=== PATIENT | female | born 1990 | race Two or more races ===

== ENCOUNTER 2018-11-28 19:52 | Emergency (ER) | payer SELFPAY ==
[2018-11-28] MEDS ORDERED: Sodium Chloride 0.9% 1,000 ML IV ONE (20:25)
[2018-11-28] MEDS ORDERED: Sodium Chloride 0.9% 2.5 ML Syringe FLUSH PRN (20:25)
[2018-11-28] MEDS ORDERED: Sodium Chloride 0.9% 10 ML Syringe FLUSH PRN (20:25)
--- NOTE | 2018-11-28 20:30 | EDM.PDOC ---
ED HPI GENERAL MEDICAL PROBLEM - General Chief Complaint: CONTRACT ASSOCIATE Problem Stated Complaint: POSS INFECTION POST PROCEDURE Time Seen by Provider: 11/28/18 19:58 - History of Present Illness INITIAL COMMENTS - FREE TEXT/NARRATIVE: HISTORY AND PHYSICAL: History of present illness: The patient is a healthy 28-year-old female who is a 2 para 0 with one prior voluntary interruption of and one recent one, which is why she is here in the ED, who presents after having an done voluntarily at about 7 weeks at [facility] in 4 ago. The procedure was performed last , November 23 and the patient tells me that about a week before the procedure she did have some brownish discharge which was small volume but not bleeding. She told the provider this on the procedure and she was given Zithromax 500 mg 1 tablet to take after the procedure. The patient had the procedure last and it was uneventful and according to her discharge paperwork she was also given Misoprostol 200 g 4 tablets that she took in a medication regimen later that evening with nausea medications and pain medications. The discharge paperwork to tell her that she was going to have some cramping and bleeding and she did pass some clots later night as well as Tuesday and then her bleeding slowed down to more like a period and it was only 2 pads a day with some lower pelvic cramping. She said that yesterday afternoon and today she is still only having a small amount of bleeding and is not increased but there is a smell to the discharge that is very malodorous and she contact the clinic and they recommend that she came in to be evaluated for possible infection. Patient said that she has had intermittent nausea and cramping since the procedure it is not worsened today and she has not had heavier bleeding today. The patient has no other gynecologic surgery or history and she has no discomfort with urination flank pain or upper abdominal pain. She has not had vomiting or diarrhea and the says that she was complaining that she was very cold when she was outside today although it was warm but they did not take her temperature and she has no documented fever. She has no cough chest pains or shortness of breath. Review of systems: As per history of present illness and below otherwise all systems reviewed and negative. Past medical history: As per history of present illness and as reviewed below otherwise noncontributory. Surgical history: As per history of present illness and as reviewed below otherwise noncontributory. Social history: No reported history of drug or alcohol abuse. Family history: As per history of present illness and as reviewed below otherwise noncontributory. Physical exam: General: Well-developed well-nourished female who is nontoxic and vital signs were noted by me. She moves easily in the ED and ambulated in without assistance and is in no distress. HEENT: Atraumatic, normocephalic, negative for conjunctival pallor or scleral icterus, mucous membranes moist, throat clear, neck supple, nontender, trachea midline. Lungs: Clear to auscultation, breath sounds equal bilaterally, chest nontender. Heart: S1S2, regular rate and rhythm no overt murmurs Abdomen: Soft, nondistended, nontender. Negative for masses or hepatosplenomegaly. Negative for costovertebral tenderness. More specifically when I palpate in the suprapubic area and the lower abdomen there is no rebound guarding or [place] tenderness Pelvis: Stable nontender. Genitourinary: External genitalia are within normal limits and there is no virgen blood or discharge seen. There is a scant amount of dark red blood in the vault without clots or tissue and there is a teeny trickle per os of red blood which is tacky and mucous-like with some yellowish characteristics. There is no odor appreciated on exam of this discharge. The cervix is nulliparous and there is no friability. There is no cervical motion tenderness or gross uterine tenderness and the uterus is small bulky and non-boggy. Adnexa are without masses or tenderness. Rectal: Deferred. Extremities: Atraumatic, full range of motion without defects or deficits and no pedal edema Neurovascular unremarkable. Neuro: Awake, alert, oriented. Cranial nerves II through XII unremarkable. Cerebellum unremarkable. Motor and sensory unremarkable throughout. Exam nonfocal. Diagnostics: CBC CMP lactic acid ABO Rh UA with reflex serum quantitative hCG pelvic ultrasound, genital swabs for trichomonas and gonorrhea and chlamydia, cervical culture Therapeutics: IV, IV fluids 2149: Case was discussed with Dr. Khan who was on-call and she agrees that this smell and discharge the patient is having is likely just the old blood and having bleeding at this point is still very common. She agrees with doing a course of doxycycline just to cover all bases and the patient is aware of this. I have informed Dr. Khan that the patient would like contraception and follow -up well woman care and I will give the patient her information. Impression: Postoperative bleeding and pain stable Definitive disposition and diagnosis as appropriate pending reevaluation and review of above. lower abd Pain Score (Numeric/FACES): 5 - Related Data Allergies Allergy/AdvReac Type Severity Reaction Status Date / Time No Known Allergies Allergy Verified 04/25/17 14:38 MST Home Meds: Home Meds . [No Known Home Meds] 04/25/17 [History] Past Medical History - Past Health History Medical/Surgical History: Denies Medical/Surgical History Social & Family History - Family History Family Medical History: Noncontributory ED ROS GENERAL - Review of Systems Review Of Systems: ROS reveals no pertinent complaints other than HPI. ED EXAM, GENERAL - Physical Exam Exam: See Below (See dictation) Course - Vital Signs Last Recorded V/S: Last Vital Signs Temp 36.4 C 11/28/18 20:05 Pulse 80 11/28/18 20:05 Resp 20 11/28/18 20:05 BP 129/87 11/28/18 20:05 Pulse Ox 99 11/28/18 20:05 - Orders/Labs/Meds Orders: Active Orders 24 hr Category Date Time Status CHLAMYDIA AND GONORRHEA BY TMA Stat Lab 11/28/18 20:45 Received CULTURE GENITAL [RM] Stat Lab 11/28/18 20:45 Received CULTURE URINE [RM] Stat Lab 11/28/18 20:30 Received Sodium Chloride 0.9% [Saline Flush] Med 11/28/18 20:25 Active 10 ml FLUSH ASDIRECTED PRN Sodium Chloride 0.9% [Saline Flush] Med 11/28/18 20:25 Active 2.5 ml FLUSH ASDIRECTED PRN Saline Lock Insert [OM.PC] Stat Oth 11/28/18 20:23 Ordered Medication Orders Sodium Chloride (Saline Flush) 10 ml FLUSH ASDIRECTED PRN PRN Reason: Keep Vein Open Sodium Chloride (Saline Flush) 2.5 ml FLUSH ASDIRECTED PRN PRN Reason: Keep Vein Open Labs: Laboratory Tests 11/28/18 11/28/18 11/28/18 Range/Units 20:32 20:32 20:32 WBC 11.20 H (4.0-11.0) K/uL RBC 4.28 L (4.30-5.90) M/uL Hgb 12.7 (12.0-16.0) g/dL Hct 38.2 (36.0-46.0) % MCV 89.3 (80.0-98.0) fL MCH 29.7 (27.0-32.0) pg MCHC 33.2 (31.0-37.0) g/dL RDW Std Deviation 42.3 (28.0-62.0) fl RDW Coeff of Mukesh 13 (11.0-15.0) % Plt Count 329 (150-400) K/uL MPV 9.60 (7.40-12.00) fL Neut % (Auto) 52.6 (48.0-80.0) % Lymph % (Auto) 36.4 (16.0-40.0) % [place] % (Auto) 8.8 (0.0-15.0) % Eos % (Auto) 1.9 (0.0-7.0) % Baso % (Auto) 0.3 (0.0-1.5) % Neut # (Auto) 5.9 H (1.4-5.7) K/uL Lymph # (Auto) 4.1 H (0.6-2.4) K/uL [place] # (Auto) 1.0 H (0.0-0.8) K/uL Eos # (Auto) 0.2 (0.0-0.7) K/uL Baso # (Auto) 0.0 (0.0-0.1) K/uL Nucleated RBC % 0.0 /100WBC Nucleated RBCs # 0 K/uL Lactate 1.1 (0.20-2.00) mmol/L Sodium 139 (136-145) mmol/L Potassium 3.6 (3.5-5.1) mmol/L Chloride 103 (98-107) mmol/L Carbon Dioxide 23.7 (21.0-32.0) mmol/L BUN 12 (7.0-18.0) mg/dL Creatinine 0.8 (0.6-1.0) mg/dL Est Cr Clr Drug Dosing 97.13 mL/min Estimated GFR (MDRD) > 60.0 ml/min Glucose 105 (74-106) mg/dL Calcium 9.0 (8.5-10.1) mg/dL Total Bilirubin 0.3 (0.2-1.0) mg/dL AST 20 (15-37) IU/L ALT 23 (14-63) IU/L Alkaline Phosphatase 68 (46-116) U/L Total Protein 8.0 (6.4-8.2) g/dL Albumin 4.2 (3.4-5.0) g/dL Globulin 3.8 (2.6-4.0) g/dL Albumin/Globulin Ratio 1.1 (0.9-1.6) HCG, Quant mIU/mL Urine Color Urine Appearance Urine pH (5.0-8.0) Ur Specific [place] (1.001-1.035) Urine Protein (NEGATIVE) mg/dL Urine Glucose (UA) (NEGATIVE) mg/dL Urine Ketones (NEGATIVE) mg/dL Urine Occult Blood (NEGATIVE) Urine Nitrite (NEGATIVE) Urine Bilirubin (NEGATIVE) Urine Urobilinogen (<2.0) EU/dL Ur Leukocyte Esterase (NEGATIVE) Urine RBC (0-2/HPF) Urine WBC (0-5/HPF) Ur Squamous Epith Cells Urine Bacteria (NEGATIVE) Urine Mucus (NONE-MOD) Etta species DNA (NEGATIVE) Gardnerella DNA Probe (NEGATIVE) Trichomonas DNA Probe (NEGATIVE) Blood Type 11/28/18 11/28/18 11/28/18 Range/Units 20:32 20:32 20:40 WBC (4.0-11.0) K/uL RBC (4.30-5.90) M/uL Hgb (12.0-16.0) g/dL Hct (36.0-46.0) % MCV (80.0-98.0) fL MCH (27.0-32.0) pg MCHC (31.0-37.0) g/dL RDW Std Deviation (28.0-62.0) fl RDW Coeff of Mukesh (11.0-15.0) % Plt Count (150-400) K/uL MPV (7.40-12.00) fL Neut % (Auto) (48.0-80.0) % Lymph % (Auto) (16.0-40.0) % [place] % (Auto) (0.0-15.0) % Eos % (Auto) (0.0-7.0) % Baso % (Auto) (0.0-1.5) % Neut # (Auto) (1.4-5.7) K/uL Lymph # (Auto) (0.6-2.4) K/uL [place] # (Auto) (0.0-0.8) K/uL Eos # (Auto) (0.0-0.7) K/uL Baso # (Auto) (0.0-0.1) K/uL Nucleated RBC % /100WBC Nucleated RBCs # K/uL Lactate (0.20-2.00) mmol/L Sodium (136-145) mmol/L Potassium (3.5-5.1) mmol/L Chloride (98-107) mmol/L Carbon Dioxide (21.0-32.0) mmol/L BUN (7.0-18.0) mg/dL Creatinine (0.6-1.0) mg/dL Est Cr Clr Drug Dosing mL/min Estimated GFR (MDRD) ml/min Glucose (74-106) mg/dL Calcium (8.5-10.1) mg/dL Total Bilirubin (0.2-1.0) mg/dL AST (15-37) IU/L ALT (14-63) IU/L Alkaline Phosphatase (46-116) U/L Total Protein (6.4-8.2) g/dL Albumin (3.4-5.0) g/dL Globulin (2.6-4.0) g/dL Albumin/Globulin Ratio (0.9-1.6) HCG, Quant 1999.0 mIU/mL Urine Color YELLOW Urine Appearance SLT CLOUDY Urine pH 6.5 (5.0-8.0) Ur Specific [place] 1.025 (1.001-1.035) Urine Protein TRACE H (NEGATIVE) mg/dL Urine Glucose (UA) NEGATIVE (NEGATIVE) mg/dL Urine Ketones NEGATIVE (NEGATIVE) mg/dL Urine Occult Blood LARGE H (NEGATIVE) Urine Nitrite NEGATIVE (NEGATIVE) Urine Bilirubin NEGATIVE (NEGATIVE) Urine Urobilinogen 1.0 (<2.0) EU/dL Ur Leukocyte Esterase NEGATIVE (NEGATIVE) Urine RBC 5-7 (0-2/HPF) Urine WBC 0-1 (0-5/HPF) Ur Squamous Epith Cells FEW Urine Bacteria 1+ H (NEGATIVE) Urine Mucus LIGHT (NONE-MOD) Etta species DNA (NEGATIVE) Gardnerella DNA Probe (NEGATIVE) Trichomonas DNA Probe (NEGATIVE) Blood Type O POSITIVE 11/28/18 Range/Units 20:45 WBC (4.0-11.0) K/uL RBC (4.30-5.90) M/uL Hgb (12.0-16.0) g/dL Hct (36.0-46.0) % MCV (80.0-98.0) fL MCH (27.0-32.0) pg MCHC (31.0-37.0) g/dL RDW Std Deviation (28.0-62.0) fl RDW Coeff of Mukesh (11.0-15.0) % Plt Count (150-400) K/uL MPV (7.40-12.00) fL Neut % (Auto) (48.0-80.0) % Lymph % (Auto) (16.0-40.0) % [place] % (Auto) (0.0-15.0) % Eos % (Auto) (0.0-7.0) % Baso % (Auto) (0.0-1.5) % Neut # (Auto) (1.4-5.7) K/uL Lymph # (Auto) (0.6-2.4) K/uL [place] # (Auto) (0.0-0.8) K/uL Eos # (Auto) (0.0-0.7) K/uL Baso # (Auto) (0.0-0.1) K/uL Nucleated RBC % /100WBC Nucleated RBCs # K/uL Lactate (0.20-2.00) mmol/L Sodium (136-145) mmol/L Potassium (3.5-5.1) mmol/L Chloride (98-107) mmol/L Carbon Dioxide (21.0-32.0) mmol/L BUN (7.0-18.0) mg/dL Creatinine (0.6-1.0) mg/dL Est Cr Clr Drug Dosing mL/min Estimated GFR (MDRD) ml/min Glucose (74-106) mg/dL Calcium (8.5-10.1) mg/dL Total Bilirubin (0.2-1.0) mg/dL AST (15-37) IU/L ALT (14-63) IU/L Alkaline Phosphatase (46-116) U/L Total Protein (6.4-8.2) g/dL Albumin (3.4-5.0) g/dL Globulin (2.6-4.0) g/dL Albumin/Globulin Ratio (0.9-1.6) HCG, Quant mIU/mL Urine Color Urine Appearance Urine pH (5.0-8.0) Ur Specific [place] (1.001-1.035) Urine Protein (NEGATIVE) mg/dL Urine Glucose (UA) (NEGATIVE) mg/dL Urine Ketones (NEGATIVE) mg/dL Urine Occult Blood (NEGATIVE) Urine Nitrite (NEGATIVE) Urine Bilirubin (NEGATIVE) Urine Urobilinogen (<2.0) EU/dL Ur Leukocyte Esterase (NEGATIVE) Urine RBC (0-2/HPF) Urine WBC (0-5/HPF) Ur Squamous Epith Cells Urine Bacteria (NEGATIVE) Urine Mucus (NONE-MOD) Etta species DNA NEGATIVE (NEGATIVE) Gardnerella DNA Probe NEGATIVE (NEGATIVE) Trichomonas DNA Probe NEGATIVE (NEGATIVE) Blood Type Meds: Medications Generic Name Dose Route Start Last Admin Trade Name Freq PRN Reason Stop Dose Admin Sodium Chloride 10 ml 11/28/18 20:25 Saline Flush FLUSH ASDIRECTED PRN Keep Vein Open Sodium Chloride 2.5 ml 11/28/18 20:25 Saline Flush FLUSH ASDIRECTED PRN Keep Vein Open Discontinued Medications Generic Name Dose Route Start Last Admin Trade Name Freq PRN Reason Stop Dose Admin Sodium Chloride 1,000 mls @ 999 mls/hr 11/28/18 20:25 11/28/18 20:54 Normal Saline IV 11/28/18 21:25 999 mls/hr STAT ONE Administration Departure - Departure Time of Disposition: 21:55 Disposition: Home, Self-Care 01 Condition: Good Clinical Impression: Postoperative vaginal bleeding, Postoperative pain - Discharge Information Referrals: PCP,None [Primary Care Provider] - Forms: ED Department Discharge Additional Instructions: The following information is given to patients seen in the emergency department who are being discharged to home. This information is to outline your options for follow-up care. We provide all patients seen in our emergency department with a follow-up referral. The need for follow-up, as well as the timing and circumstances, are variable depending upon the specifics of your emergency department visit. If you don't have a primary care physician on staff, we will provide you with a referral. We always advise you to contact your personal physician following an emergency department visit to inform them of the circumstance of the visit and for follow-up with them and/or the need for any referrals to a consulting specialist. The emergency department will also refer you to a specialist when appropriate. This referral assures that you have the opportunity for followup care with a specialist. All of these measure are taken in an effort to provide you with optimal care, which includes your followup. Under all circumstances we always encourage you to contact your private physician who remains a resource for coordinating your care. When calling for followup care, please make the office aware that this follow-up is from your recent emergency room visit. If for any reason you are refused follow-up, please contact the [facility] emergency department at and ask to speak to the emergency department charge nurse. [facility] [address] [id number] Strict pelvic rest for the next 10 days while you're on the antibiotics with nothing in the vagina including tampons douching. Expect continued bleeding and some discharge knowing that you are covered with the antibiotics from an infection. Please contact the clinic for follow-up care and discussion about future contraception needs. Push hydration and rest. Return to ER as needed and as discussed. You may continue to take her home medications for pain and nausea as you need You have been given doxycycline from [facility] as an antibiotic - My Orders Last 24 Hours: My Active Orders 11/28/18 20:23 Saline Lock Insert [OM.PC] Stat 11/28/18 20:25 Sodium Chloride 0.9% [Saline Flush] 10 ml FLUSH ASDIRECTED PRN Sodium Chloride 0.9% [Saline Flush] 2.5 ml FLUSH ASDIRECTED PRN 11/28/18 20:30 CULTURE URINE [RM] Stat 11/28/18 20:45 CHLAMYDIA AND GONORRHEA BY TMA Stat CULTURE GENITAL [RM] Stat - Assessment/Plan Last 24 Hours: My Active Orders 11/28/18 20:23 Saline Lock Insert [OM.PC] Stat 11/28/18 20:25 Sodium Chloride 0.9% [Saline Flush] 10 ml FLUSH ASDIRECTED PRN Sodium Chloride 0.9% [Saline Flush] 2.5 ml FLUSH ASDIRECTED PRN 11/28/18 20:30 CULTURE URINE [RM] Stat 11/28/18 20:45 CHLAMYDIA AND GONORRHEA BY TMA Stat CULTURE GENITAL [RM] Stat
[2018-11-28 21:12] LABS: CHLORIDE,CL 103 mmol/L (98-107); SODIUM,NA 139 mmol/L (136-145)
--- NOTE | 2018-11-28 21:48 | US ---
INDICATION: S/p 11/22/2018, now with cramping and discharge. COMPARISON: None available. FINDINGS: Transvaginal ultrasound examination of the female pelvis was performed. The uterus is anteverted with no evidence of mass. It measures 8.8 x 3.9 x 5.5 cm. The endometrial lining is moderately increased in thickness at 12 mm. There is heterogeneous echogenicity, consistent with blood clots. There is no sign of increased color Doppler flow to suggest retained products of conception, although this cannot be entirely excluded. The ovaries are normal in appearance, the right measuring 2.4 x 2.2 x 1.5 cm and the left measuring 2.0 x 2.4 x 2.3 cm. There is normal color and pulse doppler flow in both ovaries. There is no sign of free fluid in the pelvis. IMPRESSION: Moderately thickened endometrial lining at 12 millimeters without evidence of retained products of conception. Dictated by Néstor Ritchie MD @ Nov 28 2018 9:39PM Signed by Dr. Néstor Ritchie @ Nov 28 2018 9:46PM
== END 2018-11-28 22:12 | disposition home or self-care (01) ==
LOC: MW.ED 19:52
DX: O04.6 Delayed or excessive hemorrhage following (induced) termination of pregnancy (principal)
CPT/HCPCS: 36415; 76856; 80053; 81001; 83605; 84702; 85025; 86900; 86901; 87070; 87077; 87086; 87186; 87480; 87491; 87510; 87591; 87660; 96360; 99284; J7040